=== PATIENT | male | born 1950 | race Caucasian/White ===

== ENCOUNTER → 2017-11-22 | Outpatient (CLI) | payer BC ==
[~2017-11-22] MED LIST: ASPI81TA28 PO; ATEN-173 PO; ATOR10TA82 PO; COEN100C11 PO; GLC/500 PO; GLIM2TAB2 PO; LOSA50TA6 PO; OPTIRAY 320 IV PRN
--- NOTE | 2017-11-22 08:47 | DIAGNOSTIC IMAGING REPORT ---
ABDOMEN AND PELVIS CT WITH IV CONTRAST CT DOSE: 330.29 mGy.cm HISTORY: C61 Neoplasm of prostate, malignant AUTH#[id number] VALID 11/20/17 TECHNIQUE: Multiaxial CT images of the abdomen and pelvis were performed following the use of intravenous contrast. A dose lowering technique was utilized adhering to the principles of ALARA. COMPARISON STUDY: None. FINDINGS: The lung bases are essentially clear. No pneumoperitoneum. No pneumatosis. No suspicious lytic or blastic osseous lesions. Small fat-containing bilateral inguinal hernias. Atherosclerotic plaque resulting in high-grade stenosis of the left common femoral artery best seen on image 446. Moderate atrophy plaque within the normal caliber abdominal aorta and iliac arteries. No hepatic or splenic masses. Mild hepatic steatosis. The adrenal glands, pancreas, gallbladder, and kidneys are within normal limits. No hydronephrosis. No retroperitoneal or pelvic lymphadenopathy. The bladder is not well-distended but appears unremarkable. The prostate gland measures 4.6 cm in transverse diameter. No bowel wall thickening or obstruction. Normal appendix. IMPRESSION: 1. No evidence for metastatic disease within the abdomen or pelvis. 2. 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 Electronically signed by: Tommie Weston M.D. 11/22/2017 8:45 AM Dictated Date/Time: 11/22/2017 8:28 AM
== END | disposition home or self-care (01) ==
LOC: C.CTS 08:10
PROVIDERS: ATTEND Urology
DX: C61 Malignant neoplasm of prostate (principal)

== ENCOUNTER → 2017-11-24 | Outpatient (CLI) | payer BC ==
[~2017-11-24] MED LIST changes: -OPTIRAY 320 IV PRN
[2017-11-24 14:12] LABS: ALBUMIN 4.2 gm/dl (3.4-5.0); ALKALINE PHOSPHATASE 90 U/L (45-117); ALT/SGPT 43 U/L (12-78); AST/SGOT 26 U/L (15-37); BLOOD UREA NITROGEN 17 mg/dl (7-18); CALCIUM 9.2 mg/dl (8.5-10.1); CARBON DIOXIDE 28 mmol/L (21-32); CREATININE 1.19 mg/dl (0.60-1.40); GLUCOSE 143 mg/dl (70-99); POTASSIUM 4.3 mmol/L (3.5-5.1); SODIUM 138 mmol/L (136-145); TOTAL PROTEIN 8.1 gm/dl (6.4-8.2)
== END | disposition home or self-care (01) ==
LOC: C.LAB 12:08
PROVIDERS: ATTEND Urology
DX: C61 Malignant neoplasm of prostate (principal)